=== PATIENT | female | born 1970 | race Caucasian/White ===

== ENCOUNTER 2022-10-29 12:59 | Emergency (ER) | payer OTHER ==
[2022-10-29] MEDS ORDERED: Ketorolac Tromethamine 30 MG/ML VIAL ONE (16:47)
== END 2022-10-29 17:14 | disposition home or self-care (01) ==
LOC: ERS 12:59
DX: S90.31XA Contusion of right foot, initial encounter (principal); E11.9 Type 2 diabetes mellitus without complications; I10 Essential (primary) hypertension; F17.210 Nicotine dependence, cigarettes, uncomplicated; W22.03XA Walked into furniture, initial encounter; Y93.01 Activity, walking, marching and hiking; Z79.84 Long term (current) use of oral hypoglycemic drugs; Z79.899 Other long term (current) drug therapy
CPT/HCPCS: J1885